=== PATIENT | female | born 1990 | race African-American/Black ===

== ENCOUNTER 2016-12-20 00:26 | Emergency (ER) | payer MEDICAID ==
[~2016-12-20] VITALS: Ht 157.5 cm; Wt 100.0 kg
[2016-12-20] MEDS ORDERED: ACETAMINOPHEN 500MG TABLET PO ONE (02:45)
[2016-12-20] MEDS ORDERED: IBUPROFEN 400MG TABLET PO ONE (02:45)
[2016-12-20] MEDS ORDERED: METOCLOPRAMIDE HCL 10MG TABLET PO ONE (02:45)
[2016-12-20 06:08] VITALS: BP 132/56
== END 2016-12-20 06:16 | disposition home or self-care (01) ==
LOC: ER 00:26
DX: R51 Headache (principal); E66.9 Obesity, unspecified; Z68.41 Body mass index [BMI] 40.0-44.9, adult
CPT/HCPCS: 70450; 81025; 99284; J8597